=== PATIENT | female | born 1970 | race Caucasian/White ===

== ENCOUNTER 2024-08-12 07:48 | Day surgery (SDC) | payer BC, SELFPAY ==
[2024-08-12 08:03] VITALS: BMI 34.1
[2024-08-12 08:17] VITALS: BP 152/97; PULSE 78; RESP 16; TEMP 36.8; O2SAT 96
[2024-08-12] MEDS: SODIUM CHLORIDE 0.9 % (FLUSH) 10 ML SYRINGE IVF (08:17)
[2024-08-12] MEDS: 0.9 % SODIUM CHLORIDE 500 ML 500 ML 100 ML IV (08:17)
--- NOTE | 2024-08-12 09:00 | CRLHL7_ITS ---
For Patients: As a result of the Century Cures Act, medical imaging exams and procedure reports are released immediately into your electronic medical record. You may view this report before your referring provider. If you have questions, please contact your health care provider. Indication: Big toe fusion Technique: Two fluoroscopic images of the left great toe. Fluoroscopic time 14.4 seconds. IMPRESSION: Fluoroscopic guidance for fusion across the great toe interphalangeal joint. Dictated by Krunal Shrestha MD @ 08/12/2024 11:43:37 AM (Electronically Signed)
[2024-08-12] MEDS: BUPIVACAINE 0.25% 30 ML INJECTION (09:22)
[2024-08-12] MEDS: CEFAZOLIN 2 GM INJ IVP (09:24)
--- NOTE | 2024-08-12 09:38 | SUR.OPER ---
PATIENT QUESTIONS ANSWERED SATISFACTORILY PREOPERATIVELY.? PATIENT BROUGHT TO OR #4 PER CART.? Patient positioned supine on OR #4 bed.? The perioperative?team supported arms bilaterally on arm boards.? Final approval of positioning by surgeon.?
--- NOTE | 2024-08-12 10:47 | W.PM.PODPROC ---
Date of Procedure: 08/12/24 Surgeon: Oswald Kessler DPM Pre-op Diagnosis: Hallux extensus left Post-op Diagnosis: Hallux extensus left Type of Procedure: IPJ fusion great toe left Indications: Patient has had ongoing pain plantar aspect IPJ left great toe. She has elected surgical correction. I reviewed the procedure, recovery, expectations potential complications. These include but are not limited to: Poor wound healing, infection, under correction, over correction, nonunion, delayed union, malunion, hardware irritation, hardware failure. , nerve injury, potentially future surgery, deep venous thrombosis, pulmonary embolism and possible . She understands risks written consent was obtained. Site marked. Procedure Description: Patient brought the operating room placed supine position on the OR table where IV sedation was initiated. Local anesthetic injected in the left foot. She was prepped and draped in sterile fashion. Standard time-out protocol followed. An L-shaped incision was made over the dorsal IPJ which was medially based. Incision was carried down through skin subcutaneous tissues. Dorsal flap was raised and reflected laterally. Extensor tendon was identified and a portion of the tendon freed from the distal medial aspect. The interphalangeal joint was exposed. Sagittal saw was then used to resect the articular surface head of the proximal phalanx and the articular surface to the base of the distal phalanx. Wound was thoroughly irrigated with normal sterile saline. Opposing fusion surfaces were fenestrated. Guide pin was placed in the base of the distal phalanx driven out the tip of the toe. It was then driven retrogradely back into the proximal phalanx with fusion site in optimal position. C-arm confirmed position. A 4.0 partially-threaded headless screw was then inserted using standard technique. Excellent compression noted across the fusion site. Length was optimal based on C-arm images. Wound was irrigated normal sterile saline. The extensor tendon was repaired with 4-0 Vicryl. Subcutaneous tissues reapproximated 4-0 Monocryl and skin closed with 4-0 Prolene. Sterile dressings applied. Tourniquet was released and normal capillary fill time returned all digits. She was transferred from OR to PACU vital signs stable and vascular status intact. She will be discharged per same-day surgery protocol. She was given both written and verbal postoperative instructions. She is given oxycodone for pain. She will follow-up in 4 days. Anesthesia: MAC and local Hemostasis: ankle Estimated blood loss (mL): 2 Implants: Susan Fixos 4.0 cannulated headless screw x1 Specimens: none sent Disposition: same day
[2024-08-12 10:50] VITALS: BP 132/77; PULSE 72; RESP 16; TEMP 36.5; O2SAT 98
--- NOTE | 2024-08-12 10:51 | W.ANESCHARGE ---
Anesthesia Charges Start Date/Time Anesthesia Start Date: 08/12/24 Anesthesia Start Time: 09:18 Stop Date/Time Anesthesia Stop Date: 08/12/24 Anesthesia Stop Time: 10:51
[2024-08-12 11:00] VITALS: BP 137/80; PULSE 64; RESP 16; O2SAT 100
[2024-08-12 11:15] VITALS: BP 133/76; PULSE 60; RESP 16; O2SAT 100
[2024-08-12 11:30] VITALS: BP 130/77; PULSE 62; RESP 16; O2SAT 100
[2024-08-12 11:45] VITALS: BP 131/83; PULSE 62; RESP 16; O2SAT 100
[2024-08-12] MEDS: ACETAMINOPHEN 500 MG TABLET 1000 MG PO (12:03)
== END 2024-08-12 12:35 | disposition home or self-care (01) ==
LOC: OR 07:50
PROVIDERS: PCP Family Medicine; Visit Provider Podiatrist
PROC: (CPT 28740; principal; 2024-08-12 09:00)
DX: M20.5X2 Other deformities of toe(s) (acquired), left foot (principal)
CPT/HCPCS: 28755; 01480; 73620; A9270; C1713; J0665; J0690; J2250; J2405; J2704; J3010; J7030